=== PATIENT | male | born 1960 | race Caucasian/White ===

== ENCOUNTER 2019-09-20 14:52 | Emergency (ER) | payer OTHER ==
[2019-09-20 15:06] VITALS: RESP 18
--- NOTE | 2019-09-20 15:24 | ED ---
General Adult HPI - General Chief complaint: Chest Pain Stated complaint: COVID Test Time Seen by Provider: 09/20/19 15:11 Source: patient Mode of arrival: ambulatory Limitations: no limitations - History of Present Illness Initial comments: Dictation was produced using [employer] dictation software. please excuse any grammatical, word or spelling errors. This patient was cared for during a federal and state declared state of emergency secondary to Covid 19 Chief Complaint: 59-year-old male past medical history coronary artery disease, hypertension and COPD presents with chest pain. History of Present Illness: 59-year-old male was diagnosed with Covid 19 2 weeks ago presents today with chest pain. Since then he's been recovering at home. Patient states he's been having stable symptoms of rhinorrhea, sneezing. Patient states that he has some left anterior chest. He localizes the pain to his lateral pectoralis region on the left. States that the pain occurs randomly. Denies any worsening shortness of breath. Denies that the pain worsens with deep inspiration. Denies that there is any associated diaphoresis. There is no radiation of symptoms. Denies any numbness or paresthesias. No fevers, chills or night sweats. He denies any obvious exacerbating or mitigating factors. He denies any history of pulmonary embolus or DVTs. The ROS documented in this emergency department record has been reviewed and confirmed by me. Those systems with pertinent positive or negative responses have been documented in the HPI. All other systems are other negative and/or noncontributory. PHYSICAL EXAM: General Impression: Alert and oriented x3, not in acute distress HEENT: Normocephalic atraumatic, extra-ocular movements intact, pupils equal and reactive to light bilaterally, mucous membranes moist. Cardiovascular: Heart regular rate and rhythm Chest: Able to complete full sentences, no retractions, no tachypnea, tenderness to palpation over the left lateral chest Abdomen: abdomen soft, non-tender, non-distended, no organomegaly Musculoskeletal: Pulses present and equal in all extremities, no peripheral edema Motor: no focal deficits noted Neurological: CN II-XII grossly intact, no focal motor or sensory deficits noted Skin: Intact with no visualized rashes Psych: Normal affect and mood ED course: 59-year-old male presents today with atypical chest pain. Given that patient was recently diagnosed Covid 19 there is concern of hypercoagulable state. Laboratory evaluation obtained. CBC unremarkable. Coag panel is unremarkable. D-dimer slightly elevated at 0.59. Metabolic panel is unremarkable. Chest x- ray shows basilar airspace disease density along the anterior right first rib given slightly elevated d-dimer patient sent for CT angios the chest. No evidence of pulmonary embolism. There is some adenopathy that patient was told to follow-up with his primary care physician about. Patient reevaluated bedside found to be in stable medical condition. Patient clear for discharge. EKG interpretation: Ventricular rate 80, normal sinus rhythm, KS interval 136, QRS 94, QTC 41. No KS prolongation, no QTC prolongation, no ST or T-wave changes noted. No old EKG for comparison. Overall, this EKG is unremarkable - Related Data Home Medications Medication Instructions Recorded Confirmed Aspirin 81 mg PO DAILY 09/20/19 09/20/19 Atorvastatin [Lipitor] 40 mg PO DAILY 09/20/19 09/20/19 Cilostazol (Unknown Strength) 1 tab PO BID 09/20/19 09/20/19 Multivitamins, Thera [Multivitamin 1 tab PO DAILY 09/20/19 09/20/19 (formulary)] Sildenafil Citrate 20 mg PO DAILY PRN 09/20/19 09/20/19 traZODone HCL [Desyrel] 50 mg PO HS 09/20/19 09/20/19 Allergies Allergy/AdvReac Type Severity Reaction Status Date / Time No Known Allergies Allergy Verified 09/20/19 16:31 Review of Systems ROS Statement: Those systems with pertinent positive or pertinent negative responses have been documented in the HPI. ROS Other: All systems not noted in ROS Statement are negative. Past Medical History Past Medical History: Coronary Artery Disease (CAD), Hypertension History of Any Multi-Drug Resistant Organisms: None Reported Past Surgical History: Bowel Resection, Heart Catheterization With Stent, Hernia Repair Additional Past Surgical History / Comment(s): aoritc valve sx Past Psychological History: No Psychological Hx Reported Smoking Status: Former smoker Past Alcohol Use History: None Reported Past Drug Use History: None Reported General Exam Limitations: no limitations Course Vital Signs 09/20/19 15:01 Temperature 98.1 F Pulse Rate 84 Respiratory 18 Rate Blood Pressure 144/79 O2 Sat by Pulse 94 L Oximetry Medical Decision Making - Lab Data Result diagrams: 09/20/19 15:25 09/20/19 15:34 Lab Results 09/20/19 09/20/19 09/20/19 Range/Units 15:25 15:34 15:34 WBC 6.2 (3.8-10.6) k/uL RBC 5.87 (4.30-5.90) m/uL Hgb 17.3 (13.0-17.5) gm/dL Hct 51.5 (39.0-53.0) % MCV 87.7 (80.0-100.0) fL MCH 29.4 (25.0-35.0) pg MCHC 33.5 (31.0-37.0) g/dL RDW 13.5 (11.5-15.5) % Plt Count 267 (150-450) k/uL Neutrophils % 71 % Lymphocytes % 20 % Monocytes % 4 % Eosinophils % 3 % Basophils % 1 % Neutrophils # 4.4 (1.3-7.7) k/uL Lymphocytes # 1.2 (1.0-4.8) k/uL Monocytes # 0.3 (0-1.0) k/uL Eosinophils # 0.2 (0-0.7) k/uL Basophils # 0.0 (0-0.2) k/uL PT 9.4 (9.0-12.0) sec INR 0.9 (<1.2) APTT 23.9 (22.0-30.0) sec D-Dimer 0.59 (<0.60) mg/L FEU Sodium 136 L (137-145) mmol/L Potassium 4.1 (3.5-5.1) mmol/L Chloride 104 (98-107) mmol/L Carbon Dioxide 23 (22-30) mmol/L Anion Gap 9 mmol/L BUN 7 L (9-20) mg/dL Creatinine 1.02 (0.66-1.25) mg/dL Est GFR (CKD-EPI)AfAm >90 (>60 ml/min/1.73 sqM) Est GFR (CKD-EPI)NonAf 81 (>60 ml/min/1.73 sqM) Glucose 189 H (74-99) mg/dL Calcium 8.8 (8.4-10.2) mg/dL Troponin I (0.000-0.034) ng/mL 09/20/19 Range/Units 15:34 WBC (3.8-10.6) k/uL RBC (4.30-5.90) m/uL Hgb (13.0-17.5) gm/dL Hct (39.0-53.0) % MCV (80.0-100.0) fL MCH (25.0-35.0) pg MCHC (31.0-37.0) g/dL RDW (11.5-15.5) % Plt Count (150-450) k/uL Neutrophils % % Lymphocytes % % Monocytes % % Eosinophils % % Basophils % % Neutrophils # (1.3-7.7) k/uL Lymphocytes # (1.0-4.8) k/uL Monocytes # (0-1.0) k/uL Eosinophils # (0-0.7) k/uL Basophils # (0-0.2) k/uL PT (9.0-12.0) sec INR (<1.2) APTT (22.0-30.0) sec D-Dimer (<0.60) mg/L FEU Sodium (137-145) mmol/L Potassium (3.5-5.1) mmol/L Chloride (98-107) mmol/L Carbon Dioxide (22-30) mmol/L Anion Gap mmol/L BUN (9-20) mg/dL Creatinine (0.66-1.25) mg/dL Est GFR (CKD-EPI)AfAm (>60 ml/min/1.73 sqM) Est GFR (CKD-EPI)NonAf (>60 ml/min/1.73 sqM) Glucose (74-99) mg/dL Calcium (8.4-10.2) mg/dL Troponin I <0.012 (0.000-0.034) ng/mL Disposition Clinical Impression: Chest pain Disposition: HOME SELF-CARE Instructions (If sedation given, give patient instructions): Chest Pain (ED) Is patient prescribed a controlled substance at d/c from ED?: No Referrals: Nonstaff,Physician [Primary Care Provider] - 1-2 days Time of Disposition: 17:55
[2019-09-20 15:46] LABS: Basophils % (A) 1 %; Eosinophils # (A) 0.2 k/uL (0-0.7); Eosinophils % (A) 3 %; HCT 51.5 % (39.0-53.0); HGB 17.3 gm/dL (13.0-17.5); Lymphocytes # (A) 1.2 k/uL (1.0-4.8); Lymphocytes % (A) 20 %; MCH 29.4 pg (25.0-35.0); MCHC 33.5 g/dL (31.0-37.0); MCV 87.7 fL (80.0-100.0); Mean Platelet Volume 6.4; Monocytes # (A) 0.3 k/uL (0-1.0); Monocytes % (A) 4 %; Neutrophils # (A) 4.4 k/uL (1.3-7.7); Neutrophils % (A) 71 %; Platelet Count 267 k/uL (150-450); RBC 5.87 m/uL (4.30-5.90); RDW 13.5 % (11.5-15.5); WBC 6.2 k/uL (3.8-10.6)
--- NOTE | 2019-09-20 15:46 | XR ---
EXAMINATION TYPE: XR chest 1V portable DATE OF EXAM: 09/20/2019 COMPARISON: NONE HISTORY: Chest pain, Covid positive TECHNIQUE: Single frontal view of the chest is obtained. FINDINGS: Questionable nodular density at the left lung base, there is some prominence of interstiti um. Increased density along anterior right first rib may be due to confluence of structures. Is no ev ident pneumothorax or pleural effusion. Cardiac mediastinal silhouette is within normal limits. There are overlying cardiac leads. IMPRESSION: There may be some basilar airspace disease, follow-up PA and lateral chest x-ray suggest ed. Additional findings above.
[2019-09-20 15:58] LABS: African American GFR (CKD) >90 (>60 ml/min/1.73 sqM); Anion Gap 9 mmol/L; Blood Urea Nitrogen 7 mg/dL (9-20); Calcium 8.8 mg/dL (8.4-10.2); Carbon Dioxide 23 mmol/L (22-30); Chloride 104 mmol/L (98-107); Glucose 189 mg/dL (74-99); Non-African American GFR(CKD) 81 (>60 ml/min/1.73 sqM); Potassium 4.1 mmol/L (3.5-5.1); Sodium 136 mmol/L (137-145)
[2019-09-20 15:59] LABS: D-Dimer 0.59 mg/L FEU (<0.60); INR 0.9 (<1.2); Partial Thromboplastin Time 23.9 sec (22.0-30.0); Prothrombin Time 9.4 sec (9.0-12.0)
--- NOTE | 2019-09-20 17:52 | CT ---
EXAMINATION TYPE: CT angio chest DATE OF EXAM: 09/20/2019 COMPARISON: Chest x-ray earlier today HISTORY: Chest pain, upper left. CT DLP: 569.8 mGycm. Automated Exposure Control for Dose Reduction was Utilized. CONTRAST: CTA scan of the thorax is performed with IV Contrast, patient injected with 100 mL of Isovue 370, pul monary embolism protocol. MIP Images are created on CT scanner and reviewed. FINDINGS: LUNGS: Mild emphysematous change with small blebs in the bilateral lung apices. Lungs are grossly selina ar particularly left lung base without suspicious consolidation or focal groundglass opacity. There is no pleural effusion or pneumothorax seen bilaterally. The tracheobronchial tree is patent. MEDIASTINUM: There is satisfactory enhancement of the pulmonary artery and its branches, there is no CT evidence for pulmonary embolism. There are prominent bilateral hilar lymph nodes. No suspicious greater than 1 cm mediastinal lymph nodes. No cardiomegaly or pericardial effusion is seen. OTHER: Visualized liver is heterogeneously hypodense consistent with fatty infiltration. Slight scoli otic curvature. IMPRESSION: 1. No CT evidence for acute pulmonary embolism. 2. Mild underlying emphysematous change without suspicious acute pulmonary process. 3. Bilateral hilar adenopathy may warrant nonemergent follow-up
[2019-09-20 18:15] VITALS: BP 146/70; PULSE 88; TEMP 98.3
== END 2019-09-20 18:15 | disposition home or self-care (01) ==
LOC: EC 14:52
DX: R07.89 Other chest pain (principal); I25.10 Atherosclerotic heart disease of native coronary artery without angina pectoris; I10 Essential (primary) hypertension; R06.7 Sneezing; J34.89 Other specified disorders of nose and nasal sinuses; Z20.828 Contact with and (suspected) exposure to other viral communicable diseases; Z79.82 Long term (current) use of aspirin; Z87.891 Personal history of nicotine dependence; Z95.5 Presence of coronary angioplasty implant and graft
CPT/HCPCS: 36415; 93005; 85379; 80048; 84484; 85025; 85610; 85730; 71045; 71275; 99285; U0003; Q9967

== ENCOUNTER 2019-10-09 22:29 | Observation (INO) | payer OTHER ==
[2019-10-09] MEDS ORDERED: ACETAMINOPHEN TAB 325 MG TAB PO PRN (22:42)
--- NOTE | 2019-10-09 23:06 | XR ---
EXAMINATION TYPE: XR chest 1V portable DATE OF EXAM: 10/09/2019 COMPARISON: 09/20/2019 HISTORY: Chest pain. Pneumonia. TECHNIQUE: Single view FINDINGS: There is no heart failure nor confluent pneumonic infiltrate. Costophrenic angles are clear . Heart size is normal. IMPRESSION: Normal chest. No change.
[2019-10-09] MEDS: ALBUTEROL HFA INHALER INHALATION PRN (23:12)
--- NOTE | 2019-10-09 23:19 | ED ---
SOB HPI - General Chief Complaint: Shortness of Breath Stated Complaint: Covid +, SOB Time Seen by Provider: 10/09/19 22:39 Source: patient Mode of arrival: ambulatory Limitations: no limitations - History of Present Illness Initial Comments: Marlon is a 59-year-old male with a history of cardiovascular disease and COPD who presents the ER today for evaluation of worsening cough and shortness of breath. She reports that he was diagnosed with COVID on Friday of this week, he states that today he got significantly worse he states he had a coughing episode though so severe he fear that he was going to . Patient states that since then he has been able to catch his breath a little bit but still feels short of breath. He states that this evening he was scared that if he went to bed he would not wake up which prompted his visit to the ER. Patient reports he was a former cigarette smoker he quit smoking approximately 3 years ago he does have COPD. - Related Data Home Medications Medication Instructions Recorded Confirmed Aspirin 81 mg PO DAILY 09/20/19 09/20/19 Atorvastatin [Lipitor] 40 mg PO DAILY 09/20/19 09/20/19 Cilostazol (Unknown Strength) 1 tab PO BID 09/20/19 09/20/19 Multivitamins, Thera [Multivitamin 1 tab PO DAILY 09/20/19 09/20/19 (formulary)] Sildenafil Citrate 20 mg PO DAILY PRN 09/20/19 09/20/19 traZODone HCL [Desyrel] 50 mg PO HS 09/20/19 09/20/19 Allergies Allergy/AdvReac Type Severity Reaction Status Date / Time No Known Allergies Allergy Verified 10/09/19 22:38 Review of Systems ROS Statement: Those systems with pertinent positive or pertinent negative responses have been documented in the HPI. ROS Other: All systems not noted in ROS Statement are negative. Past Medical History Past Medical History: Coronary Artery Disease (CAD), Hypertension History of Any Multi-Drug Resistant Organisms: None Reported Past Surgical History: Bowel Resection, Heart Catheterization With Stent, Hernia Repair Additional Past Surgical History / Comment(s): aoritc valve sx Past Psychological History: No Psychological Hx Reported Smoking Status: Former smoker Past Alcohol Use History: None Reported Past Drug Use History: Marijuana General Exam - General Exam Comments Initial Comments: Physical Exam GENERAL: Patient is well-developed and well-nourished. Ill appearing HENT: Normocephalic, Atraumatic. EYES: PERRL, EOMI PULMONARY: Expiratory wheezing in all lung amaro CARDIOVASCULAR: There is a regular rate and rhythm without any murmurs gallops or rubs. ABDOMEN: Soft and nontender with normal bowel sounds. SKIN: Skin is clear with no lesions or rashes and otherwise unremarkable. : Deferred NEUROLOGIC: Patient is alert and oriented x3. Moving all extremities spontaneously MUSCULOSKELETAL: Normal extremities with adequate strength and full range of motion. No lower extremity swelling or edema. No calf tenderness. PSYCHIATRIC: Normal psychiatric evaluation. Limitations: no limitations Course Vital Signs 10/09/19 10/09/19 10/09/19 22:34 23:01 23:30 Temperature 98.6 F Pulse Rate 97 89 Respiratory 20 20 16 Rate Blood Pressure 145/89 139/88 O2 Sat by Pulse 94 L 95 Oximetry 10/10/19 10/10/19 10/10/19 00:00 00:30 01:58 Temperature 98.8 F Pulse Rate 87 84 80 Respiratory 13 13 18 Rate Blood Pressure 128/85 127/91 112/64 O2 Sat by Pulse 94 L 97 100 Oximetry Medical Decision Making - Medical Decision Making Patient was seen and evaluated history was obtained from the patient Patient was confirmed COVID earlier this week has worsening shortness of breath oxygen saturation will be 94% on room air upon arrival COVID workup was obtained Labs are relatively unremarkable lactic daily were mildly elevated, CT ang iography revealed no pulmonary embolism Patient will be admitted for oxygen therapy and close monitoring given multiple risk factors and respiratory decompensation - Lab Data Result diagrams: 10/09/19 23:27 10/09/19 23:27 Lab Results 10/09/19 10/09/19 10/09/19 Range/Units 23:27 23:27 23:27 WBC 8.7 (3.8-10.6) k/uL RBC 5.85 (4.30-5.90) m/uL Hgb 17.3 (13.0-17.5) gm/dL Hct 51.6 (39.0-53.0) % MCV 88.2 (80.0-100.0) fL MCH 29.5 (25.0-35.0) pg MCHC 33.4 (31.0-37.0) g/dL RDW 13.7 (11.5-15.5) % Plt Count 254 (150-450) k/uL Neutrophils % 61 % Lymphocytes % 25 % Monocytes % 8 % Eosinophils % 3 % Basophils % 1 % Neutrophils # 5.3 (1.3-7.7) k/uL Lymphocytes # 2.1 (1.0-4.8) k/uL Monocytes # 0.7 (0-1.0) k/uL Eosinophils # 0.3 (0-0.7) k/uL Basophils # 0.1 (0-0.2) k/uL PT 9.4 (9.0-12.0) sec INR 0.9 (<1.2) APTT 22.9 (22.0-30.0) sec D-Dimer 0.79 H (<0.60) mg/L FEU Sodium 139 (137-145) mmol/L Potassium 5.0 (3.5-5.1) mmol/L Chloride 104 (98-107) mmol/L Carbon Dioxide 25 (22-30) mmol/L Anion Gap 10 mmol/L BUN 20 (9-20) mg/dL Creatinine 1.04 (0.66-1.25) mg/dL Est GFR (CKD-EPI)AfAm >90 (>60 ml/min/1.73 sqM) Est GFR (CKD-EPI)NonAf 80 (>60 ml/min/1.73 sqM) Glucose 146 H (74-99) mg/dL Lactic Ac Sepsis Rflx Plasma Lactic Acid Raad (0.7-2.0) mmol/L Calcium 9.9 (8.4-10.2) mg/dL Magnesium 2.0 (1.6-2.3) mg/dL Total Bilirubin 0.5 (0.2-1.3) mg/dL AST 37 (17-59) U/L ALT 59 H (4-49) U/L Alkaline Phosphatase 62 (38-126) U/L Lactate Dehydrogenase 698 H (313-618) U/L C-Reactive Protein 10.5 H (<10.0) mg/L Total Protein 7.1 (6.3-8.2) g/dL Albumin 4.5 (3.5-5.0) g/dL 10/09/19 10/10/19 Range/Units 23:27 00:06 WBC (3.8-10.6) k/uL RBC (4.30-5.90) m/uL Hgb (13.0-17.5) gm/dL Hct (39.0-53.0) % MCV (80.0-100.0) fL MCH (25.0-35.0) pg MCHC (31.0-37.0) g/dL RDW (11.5-15.5) % Plt Count (150-450) k/uL Neutrophils % % Lymphocytes % % Monocytes % % Eosinophils % % Basophils % % Neutrophils # (1.3-7.7) k/uL Lymphocytes # (1.0-4.8) k/uL Monocytes # (0-1.0) k/uL Eosinophils # (0-0.7) k/uL Basophils # (0-0.2) k/uL PT (9.0-12.0) sec INR (<1.2) APTT (22.0-30.0) sec D-Dimer (<0.60) mg/L FEU Sodium (137-145) mmol/L Potassium (3.5-5.1) mmol/L Chloride (98-107) mmol/L Carbon Dioxide (22-30) mmol/L Anion Gap mmol/L BUN (9-20) mg/dL Creatinine (0.66-1.25) mg/dL Est GFR (CKD-EPI)AfAm (>60 ml/min/1.73 sqM) Est GFR (CKD-EPI)NonAf (>60 ml/min/1.73 sqM) Glucose (74-99) mg/dL Lactic Ac Sepsis Rflx Y Plasma Lactic Acid Raad 2.1 H* (0.7-2.0) mmol/L Calcium (8.4-10.2) mg/dL Magnesium (1.6-2.3) mg/dL Total Bilirubin (0.2-1.3) mg/dL AST (17-59) U/L ALT (4-49) U/L Alkaline Phosphatase (38-126) U/L Lactate Dehydrogenase (313-618) U/L C-Reactive Protein (<10.0) mg/L Total Protein (6.3-8.2) g/dL Albumin (3.5-5.0) g/dL Disposition Clinical Impression: COVID-19, Hypoxia Disposition: ADMITTED IP TO THIS HOSP Condition: Serious Is patient prescribed a controlled substance at d/c from ED?: No
[2019-10-09 23:34] LABS: Basophils # (A) 0.1 k/uL (0-0.2); Basophils % (A) 1 %; Eosinophils # (A) 0.3 k/uL (0-0.7); Eosinophils % (A) 3 %; HCT 51.6 % (39.0-53.0); HGB 17.3 gm/dL (13.0-17.5); Lymphocytes # (A) 2.1 k/uL (1.0-4.8); Lymphocytes % (A) 25 %; MCH 29.5 pg (25.0-35.0); MCHC 33.4 g/dL (31.0-37.0); MCV 88.2 fL (80.0-100.0); Mean Platelet Volume 6.7; Monocytes # (A) 0.7 k/uL (0-1.0); Monocytes % (A) 8 %; Neutrophils # (A) 5.3 k/uL (1.3-7.7); Neutrophils % (A) 61 %; Platelet Count 254 k/uL (150-450); RBC 5.85 m/uL (4.30-5.90); RDW 13.7 % (11.5-15.5); WBC 8.7 k/uL (3.8-10.6)
[2019-10-09 23:45] LABS: ALT 59 U/L (4-49); AST 37 U/L (17-59); African American GFR (CKD) >90 (>60 ml/min/1.73 sqM); Albumin 4.5 g/dL (3.5-5.0); Alkaline Phosphatase 62 U/L (38-126); Anion Gap 10 mmol/L; Blood Urea Nitrogen 20 mg/dL (9-20); C Reactive Protein 10.5 mg/L (<10.0); Calcium 9.9 mg/dL (8.4-10.2); Carbon Dioxide 25 mmol/L (22-30); Chloride 104 mmol/L (98-107); Glucose 146 mg/dL (74-99); LDH 698 U/L (313-618); Non-African American GFR(CKD) 80 (>60 ml/min/1.73 sqM); Sodium 139 mmol/L (137-145); Total Bilirubin 0.5 mg/dL (0.2-1.3); Total Protein 7.1 g/dL (6.3-8.2)
[2019-10-09 23:59] LABS: INR 0.9 (<1.2); Partial Thromboplastin Time 22.9 sec (22.0-30.0); Prothrombin Time 9.4 sec (9.0-12.0)
[2019-10-10 00:10] LABS: D-Dimer 0.79 mg/L FEU (<0.60)
[2019-10-10] MEDS ORDERED: NALOXONE 0.4 MG/ML 1 ML VIAL IV PRN (00:23)
--- NOTE | 2019-10-10 01:45 | CT ---
EXAMINATION TYPE: CT chest angio for PE DATE OF EXAM: 10/10/2019 COMPARISON: 09/20/2019 HISTORY: sob, CT DLP: 510.8 mGycm Automated exposure control for dose reduction was used. CONTRAST: Performed with IV Contrast, patient injected with 70 mL of Isovue 370. There are 3-D post processed images. There is mild pulmonary emphysema. There is no evidence of a pulmonary mass. There is no mediastinal adenopathy. Thoracic aorta is intact. There is no aneurysm or dissection. Heart size is normal. There is no pericardial effusion. There is some fatty infiltration of the liver. There is no pleural effus ion. There is normal contrast opacification of the pulmonary arteries. There are no filling defects. There are no hilar masses. There is 1.5 cm right bronchial lymph nodes. The thoracic spine is intact. There is no compression fracture. Bony thorax is intact. The ribs appea r intact. IMPRESSION: No evidence of pulmonary embolism. Mild pulmonary emphysema. Single prominent right bronchial lymph n odes. No adverse change compared to recent exam.
[2019-10-10] MEDS: ALBUTEROL HFA INHALER INHALATION PRN ×4 (08:26→20:47)
[2019-10-10] MEDS: ATORVASTATIN 40 MG TAB PO SCH (09:20)
[2019-10-10] MEDS: ASPIRIN 81 MG PO SCH (09:20)
[2019-10-10] MEDS ORDERED: BETAMETHASONE VALERATE TOPICAL PRN (10:42)
[2019-10-10 14:53] LABS: Appearance,Urine Clear (Clear); Bilirubin,Urine Negative (Negative); Blood,Urine Negative (Negative); Color,Urine Colorless; Glucose,Urine (UA) Negative (Negative); Ketones,Urine Negative (Negative); Leukocyte Esterase,Urine Negative (Negative); Nitrite,Urine Negative (Negative); Protein,Urine Negative (Negative); Specific Gravity,Urine 1.008 (1.001-1.035); Urobilinogen,Urine <2.0 mg/dL (<2.0)
--- NOTE | 2019-10-10 17:03 | HP ---
HISTORY AND PHYSICAL DATE OF SERVICE: 10/10/2019 CHIEF COMPLAINTS: Shortness of breath, cough as well as chest pain. HISTORY OF PRESENT ILLNESS: This 59-year-old gentleman with a past medical history of multiple medical problems including CAD, hypertension, history of bowel resection, CAD, stent being followed by Dr. Radha Gutierrez, not feeling well over the past several days. The patient apparently was diagnosed previously with COVID-19 but last night the patient became more short of breath with right-sided chest pain and the patient came to [facility] and admitted for evaluation and treatment. The chest CT scan did not show any acute pneumonia, but mild pulmonary emphysema and slight prominence of the right bronchial lymph nodes also noted. The patient admitted for evaluation and treatment. There is no history of any headache, loss, seizures at this time. The patient is a local delivery truck driver and has gone to several states including [place] where COVID-19 is present. There is no history any trauma at this time. PAST MEDICAL HISTORY: History of CAD, hypertension, history of bowel resection, history of CAD/stent, hernia repair, aortic valve surgery. MEDICATIONS: Prior to admission include Pletal, betamethasone, Desyrel, sildenafil, multivitamins, Lipitor, aspirin. ALLERGIES: None. FAMILY HISTORY: No history of heart attacks or strokes. SOCIAL HISTORY: History of EtOH in the remote past. History of THC. History of smoking. REVIEW OF SYSTEMS: ENT No history of diminished hearing or vision. CARDIOVASCULAR As mentioned earlier. RESPIRATORY As mentioned earlier. GI No nausea, vomiting, or diarrhea. No dysuria or hematuria. NERVOUS No numbness or weakness. ALLERGY/IMMUNOLOGY No asthma or hayfever. MUSCULOSKELETAL As mentioned earlier. HEMATOLOGY/ONCOLOGY Negative. ENDOCRINE No history of diabetes or hypothyroidism. CONSTITUTIONAL As mentioned earlier. DERMATOLOGY Negative. RHEUMATOLOGY Negative, PSYCHIATRY As mentioned earlier. PHYSICAL EXAMINATION: Alert and oriented x3. Pulse is 71, blood pressure 111/60, respiration 18, temp 98.2, pulse ox 94% on room. HEENT: Conjunctivae normal. Oral mucosa moist. NECK: No jugular venous distention. No lymph node enlargement. CARDIOVASCULAR: S1, S2, muffled. No S3, no S4, RESPIRATORY: Diminished breath sounds at the bases. Scattered rhonchi, no crackles. ABDOMEN: Soft, nontender. No mass palpable. LEGS: No edema, no swelling. NERVOUS SYSTEM: Higher functions mentioned earlier. Moves all four limbs. No focal motor or sensory deficits. LYMPHATICS: No lymph node in neck or axilla. SKIN: No rash. JOINTS: No active deforming arthropathy. LABS: CBC within normal. D-dimer is 0.79. Lactic acid 2.1. Glucose 146 and ALT is 59. LDH is 698. C-reactive protein is 10.5. ASSESSMENT: 1. Acute COVID-19 with severe left-sided chest pain and shortness of breath with possible sepsis, present on admission. 2. Elevated lactic acid. 3. Elevated D-dimer without any evidence of pulmonary embolism. 4. Elevated LDH. 5. Elevated C-reactive protein. 6. History of coronary artery disease. 7. Hypertension. 8. History of bowel resection. 9. History of coronary artery disease, stent. 10.History of aortic valve surgery. 11.Remote history of ETOH. 12.Nicotine dependence. 13.History of THC. 14.Obesity with body mass index of 31.8. 15.FULL CODE. RECOMMENDATIONS AND DISCUSSION: In this 59-year-old gentleman who presented with multiple medical issues, at this time we will monitor the patient closely, continue the current management, continue symptomatic treatment, continue with albuterol. Otherwise, I would also recommend pulmonary as well as Infectious Disease evaluations. Resume the home medications. Repeat labs. Prognosis guarded because of multiple complex medical issue. Further recommendations to follow. I would also recommend a set of troponins and 2D echo with Doppler to complete workup. MMODL / IJN: [id number] /
[2019-10-10] MEDS ORDERED: guaiFENesin SYRUP 100MG/5ML 200 MG/10 ML CUP PO PRN (18:10)
--- NOTE | 2019-10-10 20:21 | CONS ---
CONSULTATION PULMONARY/CRITICAL CARE CONSULTATION: DATE OF SERVICE: 10/10/2019 REASON FOR CONSULTATION: Shortness of breath and Covid-19 infection. This is a 59-year-old gentleman with apparently a history of hyperlipidemia and cardiac disease, who presents to the emergency room for evaluation of worsening cough and shortness of breath. He has a very confusing picture of initially being his tested for Covid infection back at the beginning of September. The patient apparently tested positive at that time. He at that point decided to go home and basically quarantine himself for about 10 or 14 days. The patient had a subsequent Covid test in mid September, which apparently was negative and then earlier this week apparently had another Covid test which was positive. His complaints include shortness of breath particularly when he exerts himself and a very severe cough. He states the cough is so severe that he thought he was going to . Anyway, the patient looks really quite healthy. He is moving about the room without any distress or difficulty. He did not cough 1 time when I was in the room. He does not appear to be short of breath. He is manifesting no audible wheezing, conversational dyspnea or use of accessory muscles. He actually looks quite good. The patient sees Dr. Gutierrez as a primary. The patient was apparently a heavy tobacco user in the past. Does not smoke currently. HOME MEDICATIONS: Reviewed. He is on aspirin, Lipitor, Pletal, multivitamins, sildenafil, and trazodone. ALLERGIES: Denied. MEDICAL HISTORY: Positive for CAD, and hypertension. Apparently, he also has a history of COPD from previous tobacco use. SURGICAL HISTORY: Includes bowel resection, heart catheterization with stent, and hernia repair. He apparently also has had aortic valve surgery. SOCIAL HISTORY: Positive for previous heavy tobacco use. He does not smoke currently. Denies alcohol use. Does smoke marijuana from time to time. FAMILY HISTORY: Noncontributory. Both parents were apparently quite healthy. REVIEW OF SYSTEMS: CONSTITUTIONAL: Negative. NEUROLOGIC: Negative HEENT: Negative. CARDIOVASCULAR: Negative. PULMONARY: Shortness of breath and cough. GI: Negative. : Negative. RHEUMATOLOGIC: Negative. IMMUNOLOGIC: Negative. NEUROLOGIC: Negative. DERMATOLOGIC: Negative. PHYSICAL EXAMINATION: VITAL SIGNS: Current vital signs are reviewed. Temperature is 97.6 without a fever at all since he has been here, pulse rate is 70, respiratory rate 18, blood pressure 106/79, mean 88, and his saturations have always been above 90%. Room air saturation is 96%. Appears in no acute distress. HEENT: Examination is grossly unremarkable. NECK: Supple. Full range of motion. No adenopathy. Neck veins are flat. CARDIOVASCULAR: Examination reveals regular rhythm rate. S1, S2 normal. Pulse is 70. No murmur. LUNGS: Reveal clear breath sounds. No wheezes, rhonchi, or crackles. ABDOMEN: Soft. EXTREMITIES: Intact. No cyanosis, clubbing, or edema. SKIN: Without rash. NEUROLOGIC: Examination is brief but nonfocal. LABS: Reviewed. CBC is completely normal. PT/INR normal. PTT normal. D-dimer 0.79. Sodium, potassium chloride, CO2 all normal. Anion gap is normal. Kidney function normal. Lactic acid was initially 2.1, then repeat value was 1.3, ALT 59, LDH 698, C-reactive protein 10.5, albumin normal. Microbiology is negative. X-RAY: A chest x-ray was done on October 08. It was normal. A CT angiogram was done on October 09. It showed no evidence of pulmonary embolism and some mild emphysematous changes were noted. A prior CT angiogram was done mid-September which was also very similar to the one that was done October 09. CURRENT MEDICATIONS: Reviewed. He is on Tylenol, albuterol inhaler, aspirin, Lipitor, Pletal, multiple vitamins, Narcan and trazodone. ASSESSMENT: 1. Mild Covid-19 viral infection. 2. History of chronic obstructive pulmonary disease. 3. Previous history of heavy tobacco use. 4. Hyperlipidemia. 5. History of coronary artery disease. 6. History of hypertension. 7. Previous heart catheterization with stent placement. 8. Multiple other medical problems and comorbidities. PLAN: In my opinion, the patient could be discharged home. The patient really does not need to be in the hospital at this point. He is quite stable. If he is concerned about cough, he could be given either Tessalon Perles and/or codeine-containing cough syrup. Would recommend fluids, zinc, vitamin C, and bed rest. No additional recommendations are made. He will follow up with Dr. Gutierrze. He can always come back to the hospital should his symptoms progress. MMODL / IJN: [id number] /
[2019-10-10] MEDS ORDERED: traZODone HCL 50 MG TAB PO SCH (21:00)
[2019-10-10] MEDS: cilostazoL 100 MG TAB PO SCH (21:37)
--- NOTE | 2019-10-10 23:40 | P.CONS ---
History of Present Illness - Reason for Consult Consult date: 10/10/19 covid 19 infection Requesting physician: Alee Madden - Chief Complaint Shortness of breath and cough x days - History of Present Illness Patient is a 59-year-old male with a past medical history significant for smoking apparently the patient also tested positive for covid 19 beginning of September and has been treated with self quarantine and rest Patient subsequently did have a negative cover testing and middle of September and apparently patient said he did have another: Positive for 1 week ago however I do not have any access to those test results patient presented to [facility] ER with the chief complaints of increasing shortness of breath on minimal exertion and also have a cough which has been recorded in intensity and is dry in nature unable to bring up any sputum denies any chest pain no URI symptoms no fever no chills no nausea no vomiting no abdominal pain no diarrhea with these symptoms the patient has been evaluated by the physician on arrival to the patient did have a chest x-ray that was negative for any acute infiltrate patient did not have any fever and his white count was normal and no lymphopenia patient did have mildly elevated d-dimer LDH ALT and CRP patient did have a CT angiogram that was negative for PE and did not show any groundglass opacities patient has been admitted to the hospital,The patient did have nasal flaring a swab repeated which is currently pending infectious disease was consulted for further management and concern for Covid 19 infection Review of Systems Positive point has been mentioned in the HPI rest of the systems are negative Past Medical History Past Medical History: Coronary Artery Disease (CAD), Hypertension History of Any Multi-Drug Resistant Organisms: None Reported Past Surgical History: Bowel Resection, Heart Catheterization With Stent, Hernia Repair Additional Past Surgical History / Comment(s): aoritc valve sx Past Anesthesia/Blood Transfusion Reactions: No Reported Reaction Date of Last Stent Placement:: 2012 Past Psychological History: No Psychological Hx Reported Smoking Status: Former smoker Past Alcohol Use History: None Reported Past Drug Use History: Marijuana Medications and Allergies Home Medications Medication Instructions Recorded Confirmed Type Aspirin 81 mg PO DAILY 09/20/19 10/10/19 History Multivitamins, Thera [Multivitamin 1 tab PO DAILY 09/20/19 10/10/19 History (formulary)] Sildenafil Citrate 20 mg PO DAILY PRN 09/20/19 10/10/19 History traZODone HCL [Desyrel] 50 mg PO HS 09/20/19 10/10/19 History Atorvastatin Calcium [Lipitor] 10 mg PO DAILY 10/10/19 10/10/19 History Betamethasone Valerate [Luxiq 1 applic TOPICAL DAILY PRN 10/10/19 10/10/19 History 0.01%] cilostazoL [Pletal] 100 mg PO BID 10/10/19 10/10/19 History Allergies Allergy/AdvReac Type Severity Reaction Status Date / Time No Known Allergies Allergy Verified 10/10/19 08:22 Physical Exam Vitals: Vital Signs Temp Pulse Pulse Pulse Resp BP BP 10/10/19 16:30 10/10/19 15:00 98.2 F 71 18 111/68 10/10/19 12:14 10/10/19 12:06 97.6 F 70 106/79 10/10/19 07:00 97.8 F 73 18 126/65 10/10/19 03:08 98.1 F 90 18 138/82 10/10/19 03:06 18 10/10/19 01:58 98.8 F 80 18 112/64 10/10/19 00:30 84 13 127/91 10/10/19 00:00 87 13 128/85 10/09/19 23:30 89 16 139/88 10/09/19 23:01 20 10/09/19 22:34 98.6 F 97 20 145/89 Pulse Ox 10/10/19 16:30 97 10/10/19 15:00 95 10/10/19 12:14 96 10/10/19 12:06 96 10/10/19 07:00 97 10/10/19 03:08 98 10/10/19 03:06 10/10/19 01:58 100 10/10/19 00:30 97 10/10/19 00:00 94 L 10/09/19 23:30 95 10/09/19 23:01 10/09/19 22:34 94 L Intake and Output 10/10/19 10/10/19 10/10/19 06:59 14:59 22:59 Other: # Voids 2 4 # Bowel Movements 1 Weight 106.594 kg GENERAL DESCRIPTION: Middle-aged male lying in bed, no distress. No tachypnea or accessory muscle of respiration use. HEENT: Shows Pallor , no scleral icterus. Oral mucous membrane is dry. No pharyngeal erythema or thrush NECK: Trachea central, no thyromegaly. LUNGS: Unlabored breathing. Clear to auscultation anteriorly. No wheeze or crackle. HEART: S1, S2, regular rate and rhythm. No loud murmur ABDOMEN: Soft, no tenderness , guarding or rigidity, no organomegaly EXTREMITIES: No edema of feet. SKIN: No rash, no masses palpable. NEUROLOGICAL: The patient is awake, alert, oriented x3, mood and affect normal. Results CBC & Chem 7: 10/09/19 23:27 10/09/19 23:27 Labs: Abnormal Lab Results - Last 24 Hours (Table) 10/09/19 10/09/19 10/09/19 Range/Units 23:27 23: 23:27 D-Dimer 0.79 H (<0.60) mg/L FEU Glucose 146 H (74-99) mg/dL Plasma Lactic Acid Raad 2.1 H* (0.7-2.0) mmol/L ALT 59 H (4-49) U/L Lactate Dehydrogenase 698 H (313-618) U/L C-Reactive Protein 10.5 H (<10.0) mg/L Assessment and Plan Assessment: 1- patient presented to the hospital with increasing shortness of breath and cough in this patient who do give a history of positive negative and then positive Covid 19 test in this patient currently do not have any fever white count is normal and no lymphopenia. However the patient to have mildly elevated d-dimer and LDH and CRP with concern for mild covid 19 infection and there was no evidence of any pneumonia on the chest x-ray on the CT angiogram (1) Suspected COVID-19 virus infection Current Visit: Yes Status: Acute Code(s): Z20.828 - CONTACT W AND EXPOSURE TO OTH VIRAL COMMUNICABLE DISEASES SNOMED Code(s): 604917748 Plan: 1- we will advised symptomatic treatment of his cough , patient is currently breathing comfortably on room air, no need for systemic antiviral 2-droplet isolation till the nasopharyngeal swab was finalize We will follow on clinical condition and cultures to further adjust medication if needed Thank you for this consultation will follow this patient with you Time with Patient: Greater than 30
[2019-10-11 01:53] VITALS: RESP 16
[2019-10-11] MEDS: cilostazoL 100 MG TAB PO SCH (07:19)
[2019-10-11] MEDS: ASPIRIN 81 MG PO SCH (07:19)
[2019-10-11] MEDS: ATORVASTATIN 40 MG TAB PO SCH (07:19)
[2019-10-11 07:53] VITALS: BP 129/67; PULSE 84; TEMP 97.7
[2019-10-11 08:03] LABS: Basophils # (A) 0.1 k/uL (0-0.2); Basophils % (A) 1 %; Eosinophils # (A) 0.2 k/uL (0-0.7); Eosinophils % (A) 3 %; HCT 51.1 % (39.0-53.0); Lymphocytes # (A) 1.5 k/uL (1.0-4.8); Lymphocytes % (A) 20 %; MCH 29.5 pg (25.0-35.0); MCHC 33.2 g/dL (31.0-37.0); MCV 88.8 fL (80.0-100.0); Mean Platelet Volume 6.7; Monocytes # (A) 0.5 k/uL (0-1.0); Monocytes % (A) 7 %; Neutrophils # (A) 4.8 k/uL (1.3-7.7); Neutrophils % (A) 65 %; Platelet Count 223 k/uL (150-450); RBC 5.75 m/uL (4.30-5.90); RDW 13.8 % (11.5-15.5); WBC 7.4 k/uL (3.8-10.6)
[2019-10-11 08:52] LABS: African American GFR (CKD) >90 (>60 ml/min/1.73 sqM); Anion Gap 5 mmol/L; Blood Urea Nitrogen 16 mg/dL (9-20); Calcium 8.7 mg/dL (8.4-10.2); Carbon Dioxide 23 mmol/L (22-30); Chloride 108 mmol/L (98-107); Glucose 129 mg/dL (74-99); Non-African American GFR(CKD) >90 (>60 ml/min/1.73 sqM); Sodium 136 mmol/L (137-145)
[2019-10-11 08:53] LABS: LDH 718 U/L (313-618); Potassium 5.1 mmol/L (3.5-5.1)
[2019-10-11] MEDS ORDERED: MULTIVITAMINS, THERA 1 EACH TAB PO SCH (09:00)
[2019-10-11] MEDS ORDERED: ZINC SULFATE 220 MG CAP PO SCH (09:00)
[2019-10-11] MEDS: ALBUTEROL HFA INHALER INHALATION PRN (09:30)
[2019-10-11 09:31] LABS: C Reactive Protein 9.5 mg/L (<10.0)
[2019-10-11 10:03] LABS: Ferritin 151.2 ng/mL (22.0-322.0)
--- NOTE | 2019-10-11 10:50 | ECHOF ---
Referral Reason:eval heart MEASUREMENTS -------- HEIGHT: 182.9 cm WEIGHT: 106.6 kg BP: 117/64 IVSd: 1.5 cm (0.6 - 1.1) LVIDd: 3.1 cm (3.9 - 5.3) LVPWd: 1.3 cm (0.6 - 1.1) IVSs: 1.9 cm LVIDs: 2.2 cm LVPWs: 1.8 cm LA Diam: 3.2 cm (2.7 - 3.8) RVIDd: 3.2 cm (< 3.3) Ao Diam: 3.4 cm (2.0 - 3.7) AV Cusp: 2.5 cm (1.5 - 2.6) EPSS: 0.9 cm MV E Wyatt: 0.81 m/s MV DecT: 259 ms MV A Wyatt: 1.01 m/s MV E/A Ratio: 0.80 RAP: 5.00 mmHg RVSP: 20.59 mmHg MV EF SLOPE: 44.46 mm/s (70 - 150) MV EXCURSION: 12.36 mm (> 18.000) FINDINGS -------- Sinus rhythm. This was a technically good study. The left ventricular size is normal. There is moderate concentric left ventricular hypertrophy. O verall left ventricular systolic function is normal with, an EF between 60 - 65 %. The right ventricle is normal in size. The left atrial size is normal. The right atrium is normal in size. Interatrial and interventricular septum intact. The aortic valve is trileaflet and appears structurally normal. The mitral valve is normal. Mild tricuspid regurgitation present. Trace/mild (physiologic) pulmonic regurgitation. The aortic root size is normal. IVC Not well visulized. There is no pericardial effusion. CONCLUSIONS -------- 1. The left ventricular size is normal. 2. There is moderate concentric left ventricular hypertrophy. 3. Overall left ventricular systolic function is normal with, an EF between 60 - 65 %. 4. The aortic valve is trileaflet and appears structurally normal. 5. Mild tricuspid regurgitation present. 6. Trace/mild (physiologic) pulmonic regurgitation. 7. There is no pericardial effusion. DOCTOR NATUROPATHIC: Dara Asher [facility]
--- NOTE | 2019-10-13 12:14 | CDI ---
Date: 10.13.2019 CDS/Actor Understudy Name: Nyla Avery Phone: If any questions, call Kavita Bruce Computer Systems Information Director at [phone] Patient Name: Marlon Ball Admit Date 10.31.19 Discharge Date: 10.11.19 ATTENTION: The [facility] Coding Staff appreciate your assistance in clarifying documentation. Please respond to the clarification below the line at the bottom and electronically sign. The [facility] Coding staff will review the response and follow-up if needed. Please note: Queries are made part of the Legal Health Record. If you have any questions, please contact the Computer Systems Information Director. Dear Dr. Madden In your H&P you have documented under the assessment that patient has COVID 19, consult by Dr. Murillo says suspected COVID 19, Dr. White consult he documents mild COVID 19. In past history pt had tested positive the first of September, then in mid September tested negative, then earlier in the week before this admission he had tested positive. The COVID test on this admission shows not detected. Please specify whether Mr. Ball has COVID 19 on this admission. Thank you for your kind consideration. suspected COVID 19 could be false negative testing MTDD
--- NOTE | 2019-10-18 13:36 | P.DS ---
Providers Date of admission: 10/10/19 00:23 Expected date of discharge: 10/11/19 Attending physician: Raul Pruitt MD Consults: 10/10/19 00:23 Consult Physician Urgent Consulting Provider: Solomon White Consult Reason/Comments: COVID Do you want consulting provider notified?: Yes, Notify in am 10/10/19 10:42 Consult Physician Routine Consulting Provider: Alyce Sanz Consult Reason/Comments: covid Do you want consulting provider notified?: Yes Primary care physician: Radha Gutierrez - Discharge Diagnosis(es) (1) Viral pneumonia Status: Acute (2) COVID-19 Status: Acute Hospital Course: Marlon Ball is a 59 yo M with hx tobacco abuse who presented to the ED complaining of worsening shortness of breath. He was diagnosed with Covid 19 a few weeks ago and had a repeat test a week prior to admission which was also positive. He complained of increasing shortness of breath on minimal exertion and also have a cough which has been worsening with some associated chest pain. Pt denies fever, chills, nausea, vomiting. On presentation he was hypoxic and required 2 L O2, CXR clear, trop negative, CTA negative for PE without ground glass infiltrates. Pt did have elevated d-dimer, LDH, ALT and CRP as well as procalcitonin 0.11. His repeat COVID swab in the hospital was negative. He was treated symptomatically with IV fluids, albuterol and mucinex. Pt's O2 requirements did decrease and he felt cough and chest pain were significantly improved with albuterol. Pt is discharged in stable condition and recommended to continue to isolate at home and follow up with PCP within 1 week of discharge. Discharge exam: Gen: white male in NAD CV: RRR, no murmur Lungs: Normal effort, clear throughout Neuro: alert and oriented x3 Patient Condition at Discharge: Serious Plan - Discharge Summary Discharge Rx Participant: Yes New Discharge Prescriptions: New guaiFENesin SYRUP 100MG/5ML [Robitussin] 200 mg PO TID PRN #0 ml PRN Reason: Cough Albuterol Inhaler [Ventolin Hfa Inhaler] 2 puff INHALATION QID #1 puff Continue traZODone HCL [Desyrel] 50 mg PO HS Sildenafil Citrate 20 mg PO DAILY PRN PRN Reason: sexual relations Aspirin 81 mg PO DAILY Multivitamins, Thera [Multivitamin (formulary)] 1 tab PO DAILY cilostazoL [Pletal] 100 mg PO BID Atorvastatin Calcium [Lipitor] 10 mg PO DAILY Betamethasone Valerate [Luxiq 0.01%] 1 applic TOPICAL DAILY PRN PRN Reason: Rash Discharge Medication List Aspirin 81 mg PO DAILY 09/20/19 [History] Multivitamins, Thera [Multivitamin (formulary)] 1 tab PO DAILY 09/20/19 [History] Sildenafil Citrate 20 mg PO DAILY PRN 09/20/19 [History] traZODone HCL [Desyrel] 50 mg PO HS 09/20/19 [History] Atorvastatin Calcium [Lipitor] 10 mg PO DAILY 10/10/19 [History] Betamethasone Valerate [Luxiq 0.01%] 1 applic TOPICAL DAILY PRN 10/10/19 [History] cilostazoL [Pletal] 100 mg PO BID 10/10/19 [History] Albuterol Inhaler [Ventolin Hfa Inhaler] 2 puff INHALATION QID #1 puff 10/11/19 [Rx] guaiFENesin SYRUP 100MG/5ML [Robitussin] 200 mg PO TID PRN #0 ml 10/11/19 [Rx] Follow up Appointment(s)/Referral(s): Carlyn Riley PAC [REFERRING] - 10/12/19 9:45 am (This appointment is a virtual visit office asks for you to sign up on [email or web address] and to please call the office with any questions) Patient Instructions/Handouts: Hypoxia (GEN) Discharge Disposition: HOME SELF-CARE
== END 2019-10-11 10:35 | disposition home or self-care (01) ==
LOC: EC 22:29 → INTOOBSV 10-10 00:23 → 4SSUR 10-10 00:23
PROVIDERS: ADMIT Family Medicine; ATTEND Family Medicine
DX: Z20.828 Contact with and (suspected) exposure to other viral communicable diseases (principal); R05 Cough; R06.02 Shortness of breath; R07.9 Chest pain, unspecified; R09.02 Hypoxemia; R74.0 Nonspecific elevation of levels of transaminase and lactic acid dehydrogenase [LDH]; R79.1 Abnormal coagulation profile; R79.82 Elevated C-reactive protein (CRP); I25.10 Atherosclerotic heart disease of native coronary artery without angina pectoris; E66.9 Obesity, unspecified; I10 Essential (primary) hypertension; J43.9 Emphysema, unspecified; R59.0 Localized enlarged lymph nodes; I07.1 Rheumatic tricuspid insufficiency; Z68.31 Body mass index [BMI] 31.0-31.9, adult; Z86.19 Personal history of other infectious and parasitic diseases; Z87.891 Personal history of nicotine dependence; Z79.82 Long term (current) use of aspirin; Z79.899 Other long term (current) drug therapy; Z90.49 Acquired absence of other specified parts of digestive tract; Z95.5 Presence of coronary angioplasty implant and graft; Z98.890 Other specified postprocedural states; Z87.19 Personal history of other diseases of the digestive system
CPT/HCPCS: 99285; 36415 ×2; 94640 ×4; 93005; 93306; 85379; 80053; 80048; 82728; 83605 ×2; 83615 ×2; 83735; 84484 ×2; 85025 ×2; 85610; 85730; 86140 ×2; 81003; 87040; 84145; 71045; 71275; G0378 ×2; U0003; Q9967

== ENCOUNTER 2020-12-11 17:38 | Emergency (ER) | payer OTHER ==
[2020-12-11 19:10] VITALS: BP 122/90; PULSE 67; RESP 18; TEMP 98.2
[2020-12-11] MEDS ORDERED: PROPARACAINE 0.5% OPHTH DROPS 15 ML BTL RIGHT EYE STA (19:12)
[2020-12-11] MEDS ORDERED: FLUORESCEIN STRIPS 1 MG STRIP RIGHT EYE ONE (19:12)
--- NOTE | 2020-12-11 22:18 | ED ---
General Adult HPI - General Chief complaint: ENT Stated complaint: eye pain, runny nose Time Seen by Provider: 12/11/20 21:06 Source: patient Mode of arrival: ambulatory - History of Present Illness Initial comments: 60-year-old male presents to the emergency Department with complaints of right eye pain, irritation, and sensitivity to light. States symptoms began around 2:00 today; denies any trauma, injury, or known foreign body exposure. Patient states he was seen at urgent care prior to arrival for initial evaluation, but was recommended to seek further care. Patient denies vision changes. Describes discomfort as a throbbing sensation occurring within the right eye. Also reports constant tearing. Patient denies fever, chills, headache, and facial pain. Patient reports removing contacts prior to arrival. - Related Data Home Medications Medication Instructions Recorded Confirmed Aspirin 81 mg PO DAILY 09/20/19 10/10/19 Multivitamins, Thera [Multivitamin 1 tab PO DAILY 09/20/19 10/10/19 (formulary)] Sildenafil Citrate 20 mg PO DAILY PRN 09/20/19 10/10/19 traZODone HCL [Desyrel] 50 mg PO HS 09/20/19 10/10/19 Atorvastatin Calcium [Lipitor] 10 mg PO DAILY 10/10/19 10/10/19 Betamethasone Valerate [Luxiq 1 applic TOPICAL DAILY PRN 10/10/19 10/10/19 0.01%] cilostazoL [Pletal] 100 mg PO BID 10/10/19 10/10/19 Previous Rx's Medication Instructions Recorded Albuterol Inhaler [Ventolin Hfa 2 puff INHALATION QID #1 puff 10/11/19 Inhaler] guaiFENesin SYRUP 100MG/5ML 200 mg PO TID PRN #0 ml 10/11/19 [Robitussin] Tobramycin/Dexamethasone [Tobradex 2 drop RIGHT EYE QID 7 Days #10 ml 12/11/20 Ophth Susp] Allergies Allergy/AdvReac Type Severity Reaction Status Date / Time No Known Allergies Allergy Verified 10/10/19 08:22 Review of Systems ROS Statement: Those systems with pertinent positive or pertinent negative responses have been documented in the HPI. ROS Other: All systems not noted in ROS Statement are negative. Past Medical History Past Medical History: Coronary Artery Disease (CAD), Hypertension History of Any Multi-Drug Resistant Organisms: None Reported Past Surgical History: Bowel Resection, Heart Catheterization With Stent, Hernia Repair Additional Past Surgical History / Comment(s): aoritc valve sx Past Anesthesia/Blood Transfusion Reactions: No Reported Reaction Date of Last Stent Placement:: 2012 Past Psychological History: No Psychological Hx Reported Smoking Status: Former smoker Past Alcohol Use History: None Reported Past Drug Use History: Marijuana General Exam Limitations: no limitations General appearance: alert, in no apparent distress, other (This is a well- developed, well-nourished male in no acute distress.) Head exam: Present: normal inspection, other (Nontender right temporal area) Eye exam: Present: PERRL, EOMI, conjunctival injection, other (No focal area of uptake with fluorescein exam; no evidence of rashes or lesions.). Absent: periorbital swelling, periorbital tenderness Expanded Eyelids: Normal Inspection: Bilateral Pupils: Regular, Round: Bilateral, Reactive: Bilateral Sclera/Conjunctival: Normal Inspection: Left, Injection: Right Visual acuity (R) = 20/: 40 Visual acuity (L) = 20/: 30 With correction: No IOP (R) in mmH IOP (L) in mmH IOP measured with: Tonopen Respiratory exam: Present: normal lung sounds bilaterally Cardiovascular Exam: Present: regular rate Neurological exam: Present: alert, oriented X3 Psychiatric exam: Present: normal affect, normal mood Skin exam: Present: warm, dry, intact, normal color. Absent: rash Course Vital Signs 12/11/20 19:06 Temperature 98.2 F Pulse Rate 67 Respiratory 18 Rate Blood Pressure 122/90 O2 Sat by Pulse 96 Oximetry Medical Decision Making - Medical Decision Making 52-year-old male was evaluated for complaints of right eye erythema, irritation, and photosensitivity. Pertinent physical exam findings include intact vision, constant tearing, conjunctival injection, and marked photophobia. Visual acuity 20/40 right eye, 20/30 left eye. IOP right eye 14, left eye 17. No focal area of uptake with fluorescein exam. I did prescribe him an antibiotic-steroid combination eyedrop in case this is an infectious process. Findings were discussed with patient. Instructed to follow-up with ophthalmology first thing in the morning for recheck. Return parameters were discussed in detail. Patient verbalizes understanding and agrees with this plan. Disposition Clinical Impression: Uveitis of right eye Disposition: HOME SELF-CARE Condition: Stable Instructions (If sedation given, give patient instructions): Iritis (ED) Additional Instructions: Call supervisor [place] first thing in the morning to schedule follow-up appointment. Obtain eyedrop prescription and utilize as instructed. Return to the emergency department with any new, worsening, or concerning symptoms. Prescriptions: Tobramycin/Dexamethasone [Tobradex Ophth Susp] 2 drop RIGHT EYE QID 7 Days #10 ml Is patient prescribed a controlled substance at d/c from ED?: No Referrals: Radha Gutierrez DO [Primary Care Provider] - 1-2 days Katerin Iglesias MD [STAFF PHYSICIAN] - 1-2 days Time of Disposition: 23:57
[2020-12-11] MEDS ORDERED: IBUPROFEN 600 MG TAB PO STA (23:42)
[2020-12-11] MEDS ORDERED: TOBRA-DEXAMET 0.3-0.1% OPHTH DROPS 2.5 ML BTL RIGHT EYE STA (23:51)
[2020-12-12] MEDS ORDERED: TOBRA-DEXAMET 0.3-0.1% OPHTH DROPS 2.5 ML BTL RIGHT EYE SCH
== END 2020-12-12 00:12 | disposition home or self-care (01) ==
LOC: EC 17:38
DX: H20.9 Unspecified iridocyclitis (principal); I10 Essential (primary) hypertension; I25.10 Atherosclerotic heart disease of native coronary artery without angina pectoris; R09.89 Other specified symptoms and signs involving the circulatory and respiratory systems; Z95.5 Presence of coronary angioplasty implant and graft; Z87.891 Personal history of nicotine dependence; Z79.82 Long term (current) use of aspirin; Z79.899 Other long term (current) drug therapy
CPT/HCPCS: 99283

== ENCOUNTER → 2024-05-12 | Outpatient (CLI) | payer OTHER ==
--- NOTE | 2024-05-13 08:12 | MR ---
EXAMINATION TYPE: MR lumbar spine wo con DATE OF EXAM: 05/12/2024 10:17 PM COMPARISON: None. CLINICAL INDICATION: Male, 64 years old with history of M43.16; PHH, low back pain that radiates down both legs. TECHNIQUE: Multi planar, multi sequence imaging was performed utilizing: T1-weighted, T2-weighted, a nd turbo inversion recovery imaging of the lumbar spine. IV Contrast: mL (None, if empty) FINDINGS: Alignment: The lumbar vertebral bodies have preserved heights and alignment. Cord: The conus medullaris and the distal spinal cord appear unremarkable with regards to their signa l intensity and morphology. Bones/Discs: Mild degeneration changes throughout the spine with osteophyte formation and facet joint arthropathy. Intervertebral disc signal is maintained. No abnormal inversion recovery signal to sugg est bony edema. T12-L1: No evidence of significant spinal canal stenosis or neural foraminal stenosis. L1-L2: No evidence of significant spinal canal stenosis or neural foraminal stenosis. L2-L3: No evidence of significant spinal canal stenosis or neural foraminal stenosis. L3-L4: No evidence of significant spinal canal stenosis or neural foraminal stenosis. L4-L5: No evidence of significant spinal canal stenosis or neural foraminal stenosis. L5-S1: The disc has a rounded posterior morphology without significant spinal canal stenosis. Facet j oint arthropathy with mild bilateral neural foraminal stenosis. No significant spinal canal or neural foraminal stenosis in the remainder of the visualized levels. Other findings: Saccular aneurysm of the aortic bifurcation measuring up to 3.4 cm. IMPRESSION: No definitive evidence of disc herniation or significant spinal canal stenosis. Multilevel disc degeneration with associated osteoarthritic changes. 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 [facility], , 05/13/2024 8:09 AM
== END | disposition home or self-care (01) ==
LOC: RADMRIMAIN 21:30
PROVIDERS: ATTEND Physical Medicine & Rehabilitation
DX: M43.16 Spondylolisthesis, lumbar region (principal); M47.816 Spondylosis without myelopathy or radiculopathy, lumbar region; I70.0 Atherosclerosis of aorta
CPT/HCPCS: 72148